=== PATIENT | female | born 1990 | race African-American/Black ===

== ENCOUNTER 2023-04-25 12:14 | Emergency (ER) | payer OTHER ==
[2023-04-25] MEDS ORDERED: Ibuprofen 800 MG TAB ONE (13:24)
[2023-04-25 14:23] LABS: SARS-CoV-2 NAA Rapid Test Not Detected (NotDetected)
== END 2023-04-25 15:12 | disposition home or self-care (01) ==
LOC: ERS 12:14
DX: J06.9 Acute upper respiratory infection, unspecified (principal); Z20.822 Contact with and (suspected) exposure to COVID-19
CPT/HCPCS: 87081; 87430; 99283